=== PATIENT | female | born 1955 | race Caucasian/White ===

== ENCOUNTER 2019-01-09 12:48 | Inpatient (IN) ==
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
[2019-01-09 13:13] LABS: Hematocrit 43.9 % (35.3-44.9); Hemoglobin 15.3 g/dL (11.5-15.4); Mean Corpuscular HGB Conc 34.9 g/dL (31.6-35.5); Mean Corpuscular Hemoglobin 32.3 pg (28.0-33.3); Mean Corpuscular Volume 92.6 fL (83.0-100.0); Mean Platelet Volume 8.7 fL (9.4-12.4); Platelet Count 336 K/mcL (140-400); Red Blood Count 4.74 M/mcL (3.82-4.97); Red Cell Distribution Width 12.5 % (11.5-14.5); White Blood Count 7.6 K/mcL (4.3-11.1)
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
[2019-01-09] MEDS ORDERED: *HR* Labetalol 20 MG/4 ML SYRINGE IVP ONE (13:22)
[2019-01-09 13:24] LABS: Prothrombin Time 11.3 Seconds (9.4-12.1)
[2019-01-09 13:27] LABS: Activated Partial Thrombo Time 32.4 Seconds (26.0-36.0)
[2019-01-09 13:29] LABS: BUN/Creatinine Ratio 18 (6-26); Blood Urea Nitrogen 12 mg/dL (8-23); Calcium 9.4 mg/dL (8.6-10.3); Carbon Dioxide 25 mEq/L (23-29); Chloride 108 mEq/L (98-107); Glucose 128 mg/dL (70-105); Osmolality,Calculated 291 (280-300); Sodium 140 mEq/L (136-145); eGFR For African Americans > 60 (> 60); eGFR For Non-African Americans > 60 (> 60)
[2019-01-09 13:38] LABS: Troponin I < 0.03 ng/mL (< 0.04)
[2019-01-09] MEDS ORDERED: Aspirin 325 MG TABLET PO ONE (14:13)
[2019-01-09] MEDS ORDERED: Nicotine 14 MG PATCH.TD24 TD STA (14:16)
[2019-01-09] MEDS ORDERED: *HR* HYDROcodone/Acet 10/325 mg TABLET PO STA (14:39)
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
[2019-01-09] MEDS: Gabapentin 300 MG CAPSULE PO SCH ×2 (17:34→19:52)
[2019-01-09] MEDS ORDERED: Naloxone 0.4 MG/ML INJ IVP PRN (17:46)
[2019-01-09] MEDS ORDERED: Acetaminophen 325 MG TABLET PO PRN (17:46)
[2019-01-09 18:11] LABS: Estimated Average Glucose 128 mg/dl
[2019-01-09 18:19] LABS: Chol/HDL Ratio 4.7 (0-4.9)
[2019-01-09] MEDS: *HR* Heparin 5,000 UNIT/ML VIAL SQ SCH (18:26)
[2019-01-09] MEDS: *HR* OxyCODONE Immed Rel 5 MG TABLET PO PRN (19:51)
[2019-01-09 20:38] LABS: Amphetamine Screen,Urine Negative ng/mL (Cutoff=1000); Barbiturate Screen,Urine Negative ng/mL (Cutoff=200); Benzodiazepines Screen,Urine Negative ng/mL (Cutoff=200); Cannabinoid Screen,Urine Negative ng/mL (Cutoff = 50); Cocaine Screen,Urine Negative ng/mL (Cutoff= 300); Opiate Screen,Urine Positive ng/mL (Cutoff=300); Phencyclidine Screen,Urine Negative ng/mL (Cutoff=25)
[2019-01-10 04:35] LABS: Basophils % 0.6 %; Eosinophils # 0.1 K/mcL (0.0-0.6); Eosinophils % 1.9 %; Hematocrit 40.5 % (35.3-44.9); Immature Granulocytes % 0.3 % (0-4); Lymphocytes # 2.3 K/mcL (0.6-4.6); Lymphocytes % 32.6 %; Mean Corpuscular HGB Conc 33.8 g/dL (31.6-35.5); Mean Corpuscular Hemoglobin 32.2 pg (28.0-33.3); Mean Corpuscular Volume 95.1 fL (83.0-100.0); Mean Platelet Volume 8.8 fL (9.4-12.4); Monocytes # 0.5 K/mcL (0.0-1.3); Monocytes % 6.9 %; Platelet Count 289 K/mcL (140-400); Red Blood Count 4.26 M/mcL (3.82-4.97); Red Cell Distribution Width 12.6 % (11.5-14.5); Segmented Neutrophils % 57.7 %
[2019-01-10 04:37] LABS: Hemoglobin 13.7 g/dL (11.5-15.4)
[2019-01-10 04:40] LABS: Prothrombin Time 11.4 Seconds (9.4-12.1)
[2019-01-10 04:56] LABS: Alanine Aminotransferase 10 Units/L (7-52); Albumin 4.1 g/dL (3.5-5.7); Albumin/Globulin Ratio 1.9 (1.1-2.2); Alkaline Phosphatase 58 Units/L (34-104); Aspartate Amino Transferase 9 Units/L (13-39); BUN/Creatinine Ratio 22 (6-26); Bilirubin,Direct 0.1 mg/dL (0.0-0.2); Bilirubin,Indirect 0.4 mg/dL (0.0-1.2); Bilirubin,Total 0.5 mg/dL (0.3-1.0); Blood Urea Nitrogen 15 mg/dL (8-23); Carbon Dioxide 26 mEq/L (23-29); Chloride 106 mEq/L (98-107); Globulin 2.2 g/dL (2.4-3.5); Glucose 107 mg/dL (70-105); Magnesium 2.3 mg/dL (1.6-2.6); Osmolality,Calculated 295 (280-300); Potassium 3.7 mEq/L (3.5-5.1); Sodium 142 mEq/L (136-145); Total Protein 6.3 g/dL (6.4-8.9); eGFR For African Americans > 60 (> 60); eGFR For Non-African Americans > 60 (> 60)
[2019-01-10] MEDS: *HR* Heparin 5,000 UNIT/ML VIAL SQ SCH ×2 (05:40→18:39)
[2019-01-10] MEDS: Nicotine 14 MG PATCH.TD24 TD SCH (08:12)
[2019-01-10] MEDS: Gabapentin 300 MG CAPSULE PO SCH ×3 (08:45→20:12)
[2019-01-10] MEDS: Aspirin Enteric Coated 81 MG Tablet PO SCH (08:45)
[2019-01-10] MEDS: *HR* OxyCODONE Immed Rel 5 MG TABLET PO PRN (08:51)
[2019-01-10] MEDS ORDERED: Isovue-370 500 ML BOTTLE IVP ONE ×2 (09:27→10:16)
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
[2019-01-10] MEDS: *HR* LORazepam 0.5 MG TABLET PO PRN (11:14)
--- NOTE | 2019-01-10 12:03 | Event Note ---
Date of Encounter: 01/10/19 Time of Encounter: 12:03 As there was a concern off petechial hemorrhage on MRI scan and also also thrombus patient had CT angiogram of the head according to the report 1. Evolving acute/subacute left MCA territory infarction involving the posterior left temporal lobe and left frontoparietal junction. No hemorrhagic transformation. 2. 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 ( chronic ) 3. Moderate eccentric atherosclerotic plaque in the proximal left common carotid artery results in about 40% stenosis. 4. Noncalcified atherosclerotic plaque in the V segment of the left vertebral artery results in about 50% stenosis. 5. No large vessel occlusion in the intracranial arterial circulation. 

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
[2019-01-10] MEDS: *HR* HYDROcodone/Acet 5/325 mg TABLET PO PRN (16:25)
--- NOTE | 2019-01-10 16:25 | Event Note ---
Date of Encounter: 01/10/19 Time of Encounter: 16:23 Neurology seeing patient for embolic CVA echo results as follows - EV/EV echo with saline Impressions: LVEF 60-65%. Normal LV chamber size, wall thickness and function. Mild left ventricular diastolic dysfunction. Normal right ventricular structure and function. No evidence of a PFO with agitated saline contrast. No evidence of pulmonary hypertension. No significant valvular dysfunction. Consider venous duplex of BLE and GERALDINE to evaluate source of embolic CVA
[2019-01-11] MEDS: *HR* HYDROcodone/Acet 5/325 mg TABLET PO PRN ×2 (04:32→11:55)
[2019-01-11] MEDS: *HR* Heparin 5,000 UNIT/ML VIAL SQ SCH ×2 (05:15→17:26)
[2019-01-11] MEDS: Gabapentin 300 MG CAPSULE PO SCH ×3 (08:14→21:35)
[2019-01-11] MEDS: Nicotine 14 MG PATCH.TD24 TD SCH (08:14)
[2019-01-11] MEDS: Aspirin Enteric Coated 81 MG Tablet PO SCH (08:14)
[2019-01-11] MEDS: Ondansetron 4 MG/2 ML VIAL IVP PRN (08:15)
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
--- NOTE | 2019-01-11 12:04 | Electrocardiograph Report ---
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
--- NOTE | 2019-01-11 13:32 | Neurology Progress Note ---
Date of Encounter: 01/14/19 Time of Encounter: 13:30 Assessment and Plan (1) CVA (cerebral vascular accident) Current Visit: Yes Status: Acute Patient is doing better today she is not as emotional as yesterday still have significant aphasia. MRI of the brain was consistent with acute infarct CT angiogram did not show any evidence of flow bleeding she did have intracranial stenosis currently she is on a statin with antiplatelet therapy suggest to continue on it anxiety is also improved considering concern off embolic event suggest GERALDINE to make sure she did not have any embolic source that is negative will continue only with antiplatelet therapy otherwise she may need anticoagulation Jose David Anthony MD. Neurology Qualifiers: CVA mechanism: unspecified Qualified Code(s): I63.9 - Cerebral infarction, unspecified Subjective Interval history: The patient is stable did not have any other new symptoms or any new problems continued to have problem with his speech but no significant Fortical motor weakness Objective - Constitutional Vitals: Temp Pulse Resp BP Pulse Ox 97.9 F 81 14 125/74 95 01/11/19 11:43 01/11/19 11:43 01/11/19 11:43 01/11/19 11:43 01/11/19 11:43 - Neurological Exam Motor Examination: Present: grossly full strength in all extremities Sensation intact: Present: intact Reflex and gait examination: intact Mental Status Examination: Present: awake, alert, oriented to person, oriented to place, oriented to time, expressive aphasia Cranial nerve examination: Present: PERRL, EOMI, visual guerra intact - Stroke Is the patient on any antithrombotics?: No Are there any contradictions to antithrombotics?: No Contraindication Antithromb by Day Two: Medical contraindication - VTE Deep Vein Thrombosis/Pulmonary Embolism Present on Admission: Yes Results - Laboratory Findings CBC and BMP: 01/13/19 04:14 01/13/19 04:14 Abnormal lab findings: Abnormal lab results MPV 8.8 fL (9.4-12.4) L 01/10/19 03:54 Chloride 108 mEq/L (98-107) H 01/09/19 13:03 Glucose 107 mg/dL (70-105) H 01/10/19 03:54 POC Glucose 108 mg/dL (70-99) H 01/11/19 04:04 Hemoglobin A1c 6.1 % (-5.6) H 01/09/19 16:14 AST 9 Units/L (13-39) L 01/10/19 03:54 Serum Total Protein 6.3 g/dL (6.4-8.9) L 01/10/19 03:54 Globulin 2.2 g/dL (2.4-3.5) L 01/10/19 03:54 Triglycerides 166 mg/dL (< 150) H 01/09/19 16:14 LDL Cholesterol, Calc 105 mg/dL (0-99) H 01/09/19 16:14 VLDL Cholesterol, Calc 33 mg/dL (< 31) H 01/09/19 16:14 HDL Cholesterol 37 mg/dL (40-59) L 01/09/19 16:14 Urine Opiates Screen Positive ng/mL ([id number]) H 01/09/19 19:55 Consult Discharge Plan - Plan Referrals: Malu Limon [Primary Care Provider] - 02/03/19 11:45 am
[2019-01-11] MEDS: *HR* OxyCODONE Immed Rel 5 MG TABLET PO PRN (17:26)
[2019-01-12] MEDS: *HR* Heparin 5,000 UNIT/ML VIAL SQ SCH ×2 (06:03→16:32)
[2019-01-12] MEDS: *HR* OxyCODONE Immed Rel 5 MG TABLET PO PRN ×2 (06:04→12:51)
[2019-01-12] MEDS: Nicotine 14 MG PATCH.TD24 TD SCH (08:33)
[2019-01-12] MEDS: Gabapentin 300 MG CAPSULE PO SCH ×3 (08:34→19:58)
[2019-01-12] MEDS: Aspirin Enteric Coated 81 MG Tablet PO SCH (08:34)
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
[2019-01-12] MEDS: Ondansetron 4 MG/2 ML VIAL IVP PRN (19:58)
[2019-01-12] MEDS: *HR* HYDROcodone/Acet 5/325 mg TABLET PO PRN (20:07)
[2019-01-12] MEDS: *HR* LORazepam 0.5 MG TABLET PO PRN (20:25)
[2019-01-13 04:54] LABS: Hematocrit 39.2 % (35.3-44.9); Hemoglobin 13.2 g/dL (11.5-15.4); Mean Corpuscular HGB Conc 33.7 g/dL (31.6-35.5); Mean Corpuscular Hemoglobin 32.4 pg (28.0-33.3); Mean Corpuscular Volume 96.3 fL (83.0-100.0); Mean Platelet Volume 9.1 fL (9.4-12.4); Platelet Count 251 K/mcL (140-400); Red Blood Count 4.07 M/mcL (3.82-4.97); Red Cell Distribution Width 12.5 % (11.5-14.5); White Blood Count 7.3 K/mcL (4.3-11.1)
[2019-01-13 05:14] LABS: BUN/Creatinine Ratio 32 (6-26); Blood Urea Nitrogen 21 mg/dL (8-23); Calcium 8.5 mg/dL (8.6-10.3); Carbon Dioxide 24 mEq/L (23-29); Chloride 106 mEq/L (98-107); Glucose 123 mg/dL (70-105); Osmolality,Calculated 290 (280-300); Sodium 138 mEq/L (136-145); eGFR For African Americans > 60 (> 60); eGFR For Non-African Americans > 60 (> 60)
[2019-01-13] MEDS: *HR* Heparin 5,000 UNIT/ML VIAL SQ SCH ×2 (06:12→17:46)
[2019-01-13] MEDS: Gabapentin 300 MG CAPSULE PO SCH ×3 (08:00→19:56)
[2019-01-13] MEDS ORDERED: Lidocaine Viscous Oral Soln 15 ML SOLUTION MM PRN (08:22)
[2019-01-13] MEDS ORDERED: 0.9 % Sodium Chloride 500 ML IVC ONE (08:23)
[2019-01-13] MEDS ORDERED: *HR* Midazolam HCl 2 MG/2 ML VIAL IVP PRN (08:23)
[2019-01-13] MEDS ORDERED: *HR* Midazolam HCl 5 MG/5 ML VIAL IVP ONE (08:34)
[2019-01-13] MEDS: *HR* Midazolam HCl 5 MG/5 ML VIAL IVP ONE ×2 (08:45→08:56)
[2019-01-13] MEDS: *HR* FentaNYL (PF) 100 MCG/2 ML VIAL IVP PRN ×3 (08:45→08:55)
[2019-01-13] MEDS: Aspirin Enteric Coated 81 MG Tablet PO SCH (09:00)
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
--- NOTE | 2019-01-13 10:29 | Neurology Progress Note ---
<Osmar Churchill - Last Filed: 01/13/19 10:24> Date of Encounter: 01/13/19 Time of Encounter: 10:24 Assessment and Plan (1) CVA (cerebral vascular accident) Current Visit: Yes Status: Acute clinically is improving continues with expressive aphasia but is improving; no new neuro deficits -Rec speech therapy -PT/OT recommending inpatient swing bed for rehabilitation -MRI brain-small acute stroke in the left posterior temporal parietal region -Ojzlblyudzedlt-98-12% no PFO, no valvular dysfunction -CT angiogram-developed an acute/subacute left MCA territory infarction involving the posterior left temporal lobe and left frontoparietal junction without hemorrhagic transformation. 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 Moderate eccentric atherosclerotic plaque in the proximal left common carotid artery with 40% stenosis. Noncalcified atherosclerotic plaque in the V2 segment of liver to artery results and 50% stenosis. No large vessel occlusion in the intracranial arterial circulation Will undergo GERALDINE for evaluation of possible thrombus; if negative we recommend ing maintaining current medication regimen with statin and antiplatelet therapy Further recommendations pending w/u Qualifiers: CVA mechanism: unspecified Qualified Code(s): I63.9 - Cerebral infarction, unspecified Subjective Principal diagnosis: Acute CVA Interval history: The chart was reviewed, the patient was seen and examined at the bedside today. She continues to have expressive aphasia but is improving overall. No new deficits on neurological exam today. She is to undergo a GERALDINE this afternoon for evaluation of possible thrombus. Objective - Constitutional Vitals: Temp Pulse Resp BP Pulse Ox 97.6 F 68 18 119/78 93 01/13/19 08:24 01/13/19 08:24 01/13/19 08:24 01/13/19 08:24 01/13/19 08:24 Exam: Examination: General Examination: *CONSTITUTIONAL: Alert and oriented x3, calm and cooperative *GENERAL APPEARANCE OF PATIENT appears to be generally healthy and well groomed *EYES: pupils equal, round, reactive to light and accommodation, conjunctiva clear without masses or ulcerations, fundi normal. *CARDIOVASCULAR: no peripheral edema, distal temperature normal, dorsalis pedis pulses normal. 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 No abnormal movements, fasciculations or atrophy identified. Neurological: *ORIENTATION to person, situation, time and place *LANGUAGE AND FUNCTION no significant aphasia. No dysarthria, expressive aphasia continues but improving *ATTENTION AND CONCENTRATION are normal *LANGUAGE FUNCTION no significant aphasia or dysarthia was noted. *FUND OF KNOWLEDGE aware of current events, past history, vocabulary *MENTAL attention span and concentration normal. *CN II optic fundi were normal, no papilledema noted. *CN III,IV, PERRLA extraocular eye movements were full, no nystagmus and no ptosis noted. *CN V shows normal sensation and jaw opens symmetrically. *CN VII shows normal facial movement symmetrically, upper and lower bilaterally. *CN VIII shows no significant hearing loss on exam *CN IX-X palate elevated symmetrically *CN XI normal strength in the sternocleidomastoid muscles, symmetrical shoulder shrugging. *CN XII tongue protruded in the midline, with normal strength and movement. *SENSORY EXAMINATION light touch intact *REFLEXES: deep tendon reflexes were normal and symmetrical , grade 2/4 diffusely, no pathological reflexes were noted. *CEREBELLAR TESTING normal finger to nose *PAIN LEVEL 0/10 Results - Stroke Contraindication Antithromb by Day Two: Medical contraindication - VTE Deep Vein Thrombosis/Pulmonary Embolism Present on Admission: Yes Results - Laboratory Findings CBC and BMP: 01/13/19 04:14 01/13/19 04:14 Abnormal lab findings: Abnormal lab results MPV 9.1 fL (9.4-12.4) L 01/13/19 04:14 Chloride 108 mEq/L (98-107) H 01/09/19 13:03 BUN/Creatinine Ratio 32 (6-26) H 01/13/19 04:14 Glucose 123 mg/dL (70-105) H 01/13/19 04:14 POC Glucose 147 mg/dL (70-99) H 01/11/19 22:59 Hemoglobin A1c 6.1 % (-5.6) H 01/09/19 16:14 Calcium 8.5 mg/dL (8.6-10.3) L 01/13/19 04:14 AST 9 Units/L (13-39) L 01/10/19 03:54 Serum Total Protein 6.3 g/dL (6.4-8.9) L 01/10/19 03:54 Globulin 2.2 g/dL (2.4-3.5) L 01/10/19 03:54 Triglycerides 166 mg/dL (< 150) H 01/09/19 16:14 LDL Cholesterol, Calc 105 mg/dL (0-99) H 01/09/19 16:14 VLDL Cholesterol, Calc 33 mg/dL (< 31) H 01/09/19 16:14 HDL Cholesterol 37 mg/dL (40-59) L 01/09/19 16:14 Urine Opiates Screen Positive ng/mL ([id number]=443) H 01/09/19 19:55 Consult Discharge Plan - Plan Referrals: Malu Limon [Primary Care Provider] - <Jose David Anthony I - Last Filed: 01/13/19 14:19> Date of Encounter: 01/13/19 Assessment and Plan (1) CVA (cerebral vascular accident) Current Visit: Yes Status: Acute I have personally performed a face to face diagnostic evaluation, including HPI, EXAM, which is included in the Assesment and plan, which was discussed with Osmar Churchill CNP, I agree with the above outlined documentation. Jose David Anthony MD. NeurologyI Qualifiers: CVA mechanism: unspecified Qualified Code(s): I63.9 - Cerebral infarction, unspecified Objective - Constitutional Vitals: Temp Pulse Resp BP Pulse Ox 97.5 F L 65 16 108/75 95 01/13/19 10:59 01/13/19 10:59 01/13/19 10:59 01/13/19 10:59 01/13/19 10:59 - Stroke Is the patient on any antithrombotics?: No Are there any contradictions to antithrombotics?: No Results - Laboratory Findings CBC and BMP: 01/13/19 04:14 01/13/19 04:14 Abnormal lab findings: Abnormal lab results MPV 9.1 fL (9.4-12.4) L 01/13/19 04:14 Chloride 108 mEq/L (98-107) H 01/09/19 13:03 BUN/Creatinine Ratio 32 (6-26) H 01/13/19 04:14 Glucose 123 mg/dL (70-105) H 01/13/19 04:14 POC Glucose 147 mg/dL (70-99) H 01/11/19 22:59 Hemoglobin A1c 6.1 % (-5.6) H 01/09/19 16:14 Calcium 8.5 mg/dL (8.6-10.3) L 01/13/19 04:14 AST 9 Units/L (13-39) L 01/10/19 03:54 Serum Total Protein 6.3 g/dL (6.4-8.9) L 01/10/19 03:54 Globulin 2.2 g/dL (2.4-3.5) L 01/10/19 03:54 Triglycerides 166 mg/dL (< 150) H 01/09/19 16:14 LDL Cholesterol, Calc 105 mg/dL (0-99) H 01/09/19 16:14 VLDL Cholesterol, Calc 33 mg/dL (< 31) H 01/09/19 16:14 HDL Cholesterol 37 mg/dL (40-59) L 01/09/19 16:14 Urine Opiates Screen Positive ng/mL (Lgxjlq=970) H 01/09/19 19:55
--- NOTE | 2019-01-13 11:22 | Event Note ---
Date of Encounter: 01/13/19 Time of Encounter: 11:19 GERALDINE completed, no PFO, or intracardiac thrombus continue with antiplatelet therapy and statin c/w PT/OT and speech Neurology will sign off at this time; Please call should any urgent needs arise Okay to d/c from neurology perspective
[2019-01-13] MEDS: *HR* OxyCODONE Immed Rel 5 MG TABLET PO PRN (14:03)
[2019-01-13] MEDS: Ondansetron 4 MG/2 ML VIAL IVP PRN (18:24)
[2019-01-13] MEDS: *HR* HYDROcodone/Acet 5/325 mg TABLET PO PRN (20:02)
[2019-01-13] MEDS: Nicotine 14 MG PATCH.TD24 TD SCH (21:08)
[2019-01-14] MEDS: Nicotine 14 MG PATCH.TD24 TD SCH ×2 (00:16→21:29)
[2019-01-14] MEDS: *HR* Heparin 5,000 UNIT/ML VIAL SQ SCH ×2 (05:11→17:25)
[2019-01-14] MEDS: *HR* HYDROcodone/Acet 5/325 mg TABLET PO PRN ×3 (05:12→19:23)
[2019-01-14] MEDS: Gabapentin 300 MG CAPSULE PO SCH ×3 (08:23→21:34)
[2019-01-14] MEDS: Aspirin Enteric Coated 81 MG Tablet PO SCH (08:23)
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
[2019-01-15] MEDS: *HR* HYDROcodone/Acet 5/325 mg TABLET PO PRN ×2 (03:16→15:23)
[2019-01-15 05:11] LABS: Basophils # 0.1 K/mcL (0.0-0.2); Basophils % 0.9 %; Eosinophils # 0.1 K/mcL (0.0-0.6); Eosinophils % 2.2 %; Hematocrit 40.4 % (35.3-44.9); Hemoglobin 13.3 g/dL (11.5-15.4); Immature Granulocytes % 0.2 % (0-4); Lymphocytes # 1.6 K/mcL (0.6-4.6); Lymphocytes % 24.6 %; Mean Corpuscular HGB Conc 32.9 g/dL (31.6-35.5); Mean Corpuscular Hemoglobin 32.3 pg (28.0-33.3); Mean Corpuscular Volume 98.1 fL (83.0-100.0); Mean Platelet Volume 9.1 fL (9.4-12.4); Monocytes # 0.6 K/mcL (0.0-1.3); Neutrophils # 4.1 K/mcL (1.6-8.9); Platelet Count 251 K/mcL (140-400); Red Blood Count 4.12 M/mcL (3.82-4.97); Segmented Neutrophils % 63.1 %; White Blood Count 6.5 K/mcL (4.3-11.1)
[2019-01-15 05:31] LABS: BUN/Creatinine Ratio 21 (6-26); Blood Urea Nitrogen 13 mg/dL (8-23); Calcium 8.8 mg/dL (8.6-10.3); Carbon Dioxide 24 mEq/L (23-29); Chloride 104 mEq/L (98-107); Glucose 116 mg/dL (70-105); Osmolality,Calculated 287 (280-300); Sodium 138 mEq/L (136-145); eGFR For African Americans > 60 (> 60); eGFR For Non-African Americans > 60 (> 60)
[2019-01-15] MEDS: *HR* Heparin 5,000 UNIT/ML VIAL SQ SCH ×2 (05:52→17:49)
[2019-01-15] MEDS: Gabapentin 300 MG CAPSULE PO SCH ×3 (08:42→21:50)
[2019-01-15] MEDS: Acetaminophen/Butalbital/CaffeineTABLET PO PRN ×2 (08:42→21:55)
[2019-01-15] MEDS: Aspirin Enteric Coated 81 MG Tablet PO SCH (08:42)
--- NOTE | 2019-01-15 13:19 | Internal Med Progress Note ---
Hospitalist Progress Note - Encounter Date of Encounter: 01/15/19 Time of Encounter: 12:36 - Subjective Interval History: Patient was seen and examined at [facility] She cont to word search- attempts to speak in sentences - however unable to find words- she becomes frustrated and begins to cry- discussed rehab which patient verbalized understanding - Exam Vitals: Temp Pulse Resp BP Pulse Ox 97.8 F 225 17 113/79 80 01/15/19 06:44 01/15/19 06:44 01/15/19 06:44 01/15/19 06:44 01/15/19 06:44 Exam: Gen: Alert, awake, Oriented to time,place and person Chest: Diminished breath sounds B/L, No wheezing, No crackles, No rales Heart: S1S2+ RRR No murmurs Abd: Soft, NT, BS +, No organomegaly Ext: No edema, pulses are palpable, No calf tenderness Neuro : Dysarthria +, Motor weakness in Rt UE and LE. Reflexes diminished Skin: No rash. - Assessment and Plan (1) Aphasia Current Visit: Yes Status: Acute Assessment and Plan: as above. Speech improving attempting to speak in sentences- word finding (2) HTN (hypertension) Current Visit: No Status: Chronic Assessment and Plan: Stable BP cont current medications (3) COPD (chronic obstructive pulmonary disease) Current Visit: No Status: Chronic Assessment and Plan: not in exacerbation. resumed home inhalers. (4) Tobacco abuse Current Visit: No Status: Chronic Assessment and Plan: Counseled to quit smoking placed on nicotine patch (5) Embolic stroke Current Visit: Yes Status: Acute Assessment and Plan: 01/10 Brain MRI showed small acute stroke in the left posterior temporal and parietal region. Multiple scattered punctate foci of acute stroke in the left frontal and parietal lobes. CTA of Head / Neck showed - Evolving acute/subacute left MCA territory infarction involving the posterior left temporal lobe and left fronto parietal junction. 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 Not a cnadidtae for tPA due to out of time frame Neuro is on board. Appreciate recommendations Since pt is ASA naive, started on ASA 81mg Will talk to Neuro about DAPT therapy since pt has embolic CVA her EKG showed NSR, no arrhythmias noticed Echo - P on LIpitor 80mg - LDL @ 105 PT / OT eval.. may get benefit of inpatient physical therapy speech therapy ordered. 01/11 GERALDINE ordered per neurology recommendation. PT/OT recommended inpatient rehabilitation. Continue aspirin. Neurology following, appreciate help. 01/12-01/13 pending GERALDINE, on asa currently. Neuro and cardiology following, appreciate help. 01/14 GERALDINE no intra-ventricular thrombus. Neuro recommended continue asa. Awaiting for placement. 01/15 Speech appears to be improving- cont to have some weakness to R side Neuro recommends cont ASA statin Awaiting acceptance at rehab - Time Spent with Patient Total time spent is greater than 50% in coordination of care (as documented) at patient's floor/unit and/or counseling patient: Internal Medicine: Result - Labs CBC & Chem 7: 01/15/19 04:24 01/15/19 04:24 Labs: Short CBC 01/15/19 Range/Units 04:24 WBC 6.5 (4.3-11.1) K/mcL Hgb 13.3 (11.5-15.4) g/dL Hct 40.4 (35.3-44.9) % Plt Count 251 (140-400) K/mcL Neutrophils # 4.1 (1.6-8.9) K/mcL BMP 01/15/19 04:24 Sodium 138 Potassium 4.0 Chloride 104 Carbon Dioxide 24 BUN 13 Creatinine 0.61 Glucose 116 H Calcium 8.8 - ABG Interpretation ABG results: PT/INR, D-dimer PT 11.4 Seconds (9.4-12.1) 01/10/19 03:54 - Stroke Is the patient on any antithrombotics?: Yes Are there any contradictions to antithrombotics?: No Contraindication Not Initiating IV-Tpa: Medical contraindication Has Patient Been Evaluated by Rehab for Stroke: Yes - VTE Deep Vein Thrombosis/Pulmonary Embolism Present on Admission: Yes Consult Discharge Plan - Plan Referrals: Malu Limon [Primary Care Provider] - 02/03/19 11:45 am (2) HTN (hypertension) Qualifiers: Hypertension type: essential hypertension Qualified Code(s): I10 - Essential (primary) hypertension (3) COPD (chronic obstructive pulmonary disease) Qualifiers: COPD type: unspecified COPD Qualified Code(s): J44.9 - Chronic obstructive pulmonary disease, unspecified (5) Embolic stroke Qualifiers: Precerebral and cerebral artery: middle cerebral artery Laterality of affected vessel: left Qualified Code(s): I63.412 - Cerebral infarction due to embolism of left middle cerebral artery
[2019-01-15] MEDS: *HR* LORazepam 0.5 MG TABLET PO PRN (21:50)
[2019-01-15] MEDS: Nicotine 14 MG PATCH.TD24 TD SCH (21:51)
[2019-01-16] MEDS: *HR* HYDROcodone/Acet 5/325 mg TABLET PO PRN ×3 (00:52→16:15)
--- NOTE | 2019-01-16 03:59 | Event Note ---
Date of Encounter: 01/16/19 Time of Encounter: 03:24 Alerted by pts. nurse NAVIN Randolph that the patient had been admitted for stroke- like symptoms. Patient's is now concerned about her, stating that she seems different than previously today. Nurse requested I come see patient immediately which I did. Patient was resting in bed. Minor jerking movements on examination. Patient's denies history of seizures. Patient is aphasic. Patient could not complete neurological exam as she was unable to follow directions. Notably weaker right side when attempting to squeeze my fingers. MRI on 12/20 to showed small acute stroke in the left posterior temporal and parietal region. Additionally, multiple scattered punctate foci of acute stroke in the left frontal and parietal lobes. Small focus of gradient blooming in the region of acute stroke in the left posterior temporal region which could represent trace petechial hemorrhage versus thrombus within a vessel. Mild been asymmetric FLAIR hyperintense signal in left posterior temporal, occipital, and parietal convexities is nonspecific and could relate to changes of acute ischemia in the adjacent brain parenchyma. Trace subdural blood is considered less likely but not entirely excluded. Continued attenuation on follow-up recommended. Stat CT of the head/brain without contrast ordered to rule out hemorrhagic etiology. Stat troponin ordered. Stat MRI ordered to be done first thing in the a.m. to rule out additional acute stroke(s). Stat CBC and CMP ordered. Falls precautions and up with assist ordered. Awaiting CT results. Nurse instructed to continue monitoring this patient very closely and alert me immediately of any adverse changes. Based on i ing, this pt. may require a further Neurology consult.
[2019-01-16 04:07] LABS: Basophils % 0.5 %; Eosinophils # 0.2 K/mcL (0.0-0.6); Hematocrit 38.3 % (35.3-44.9); Hemoglobin 13.1 g/dL (11.5-15.4); Immature Granulocytes % 0.3 % (0-4); Lymphocytes # 2.3 K/mcL (0.6-4.6); Lymphocytes % 29.8 %; Mean Corpuscular HGB Conc 34.2 g/dL (31.6-35.5); Mean Corpuscular Hemoglobin 31.6 pg (28.0-33.3); Mean Corpuscular Volume 92.5 fL (83.0-100.0); Mean Platelet Volume 9.2 fL (9.4-12.4); Monocytes # 0.6 K/mcL (0.0-1.3); Monocytes % 7.7 %; Neutrophils # 4.5 K/mcL (1.6-8.9); Platelet Count 289 K/mcL (140-400); Red Blood Count 4.14 M/mcL (3.82-4.97); Red Cell Distribution Width 11.9 % (11.5-14.5); Segmented Neutrophils % 59.7 %; White Blood Count 7.6 K/mcL (4.3-11.1)
[2019-01-16 04:25] LABS: Alanine Aminotransferase 16 Units/L (7-52); Albumin 4.1 g/dL (3.5-5.7); Albumin/Globulin Ratio 1.6 (1.1-2.2); Alkaline Phosphatase 68 Units/L (34-104); Aspartate Amino Transferase 12 Units/L (13-39); BUN/Creatinine Ratio 16 (6-26); Bilirubin,Total 0.4 mg/dL (0.3-1.0); Blood Urea Nitrogen 9 mg/dL (8-23); Calcium 9.1 mg/dL (8.6-10.3); Carbon Dioxide 25 mEq/L (23-29); Chloride 106 mEq/L (98-107); Globulin 2.5 g/dL (2.4-3.5); Glucose 113 mg/dL (70-105); Osmolality,Calculated 289 (280-300); Sodium 140 mEq/L (136-145); Total Protein 6.6 g/dL (6.4-8.9); eGFR For African Americans > 60 (> 60); eGFR For Non-African Americans > 60 (> 60)
[2019-01-16] MEDS: *HR* Heparin 5,000 UNIT/ML VIAL SQ SCH (05:17)
--- NOTE | 2019-01-16 08:30 | Internal Med Progress Note ---
Hospitalist Progress Note - Encounter Date of Encounter: 01/16/19 Time of Encounter: 08:30 - Subjective Interval History: Received signout from night [employer]ER-daily overnight patient exhibited jerking movements as well as was a phasic unable to follow directions-ray side was flaccid-stat CT and MRI was not completed which did show Left MCA vascular t erritory infarct involving the left temporal and parietal lobes has increased in size since the prior examination. Small area of acute infarct in the anterior left frontal lobe appears progressed since the prior examination. Additional, punctate foci of acute infarct in the left frontal white matter have not significantly changed. Patient was assessed when I arrived this a.m. and was noted to have expressive aphasia as well as right-sided weakness. I did speak with the on-call neurologist Dr. Sim and updated him on recent changes. I also notified Melissa Churchill CNP who evaluated the patient at bedside we did review telemetry overnight there is some question concerning possible atrial flutter we will consult cardiology. Patient and family updated on treatment plan. - Exam Vitals: Temp Pulse Resp BP Pulse Ox 97.9 F 65 16 114/79 97 01/16/19 02:43 01/16/19 06:44 01/16/19 06:44 01/16/19 06:44 01/16/19 06:44 Exam: Gen: Alert, awake, Oriented to time,place and person Chest: Diminished breath sounds B/L, No wheezing, No crackles, No rales Heart: S1S2+ RRR No murmurs Abd: Soft, NT, BS +, No organomegaly Ext: No edema, pulses are palpable, No calf tenderness Neuro : Dysarthria +, Motor weakness in Rt UE and LE. Reflexes diminished Skin: No rash. - Assessment and Plan (1) Aphasia Current Visit: Yes Status: Acute Assessment and Plan: as above. Displays expressive aphasia repeat MRI head/brain does show IMPRESSION: Left MCA vascular territory infarct involving the left temporal and parietal lobes has increased in size since the prior examination. Small area of acute infarct in the anterior left frontal lobe appears progressed since the prior examination. Additional, punctate foci of acute infarct in the left frontal white matter have not significantly changed. (2) HTN (hypertension) Current Visit: No Status: Chronic Assessment and Plan: Patient has had some hypotension with systolic in the 90s. We will hold antihypertensives for now and allow for permissive hypertension maintaining systolic range 160-180 (3) COPD (chronic obstructive pulmonary disease) Current Visit: No Status: Chronic Assessment and Plan: not in exacerbation. Continue home inhalers. (4) Tobacco abuse Current Visit: No Status: Chronic Assessment and Plan: Counseled to quit smoking placed on nicotine patch (5) Embolic stroke Current Visit: Yes Status: Acute Assessment and Plan: 01/10 Brain MRI showed small acute stroke in the left posterior temporal and parietal region. Multiple scattered punctate foci of acute stroke in the left frontal and parietal lobes. CTA of Head / Neck showed - Evolving acute/subacute left MCA territory infarction involving the posterior left temporal lobe and left fronto parietal junction. 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 Not a cnadidtae for tPA due to out of time frame Neuro is on board. Appreciate recommendations Since pt is ASA naive, started on ASA 81mg Will talk to Neuro about DAPT therapy since pt has embolic CVA her EKG showed NSR, no arrhythmias noticed Echo - P on LIpitor 80mg - LDL @ 105 PT / OT eval.. may get benefit of inpatient physical therapy speech therapy ordered. 01/11 GERALDINE ordered per neurology recommendation. PT/OT recommended inpatient rehabilitation. Continue aspirin. Neurology following, appreciate help. 01/12-01/13 pending GERALDINE, on asa currently. Neuro and cardiology following, appreciate help. 01/14 GERALDINE no intra-ventricular thrombus. Neuro recommended continue asa. Awaiting for placement. 01/15 Speech appears to be improving- cont to have some weakness to R side Neuro recommends cont ASA statin Awaiting acceptance at rehab 01/16 Patient developed aphasia as well as right-sided weakness overnight repeat MRI head/brain IMPRESSION: Left MCA vascular territory infarct involving the left temporal and parietal lobes has increased in size since the prior examination. Small area of acute infarct in the anterior left frontal lobe appears progressed since the prior examination. Additional, punctate foci of acute infarct in the left frontal white matter have not significantly changed. Neurology was notified-review of telemetry overnight questionable atrial flutter Consult to cardiology cardiology requesting consult for vascular surgery- occlusion of cervical left internal carotid artery with reconstitution of flow within the left petrous segment Continue aspirin and statin - Time Spent with Patient Total time spent is greater than 50% in coordination of care (as documented) at patient's floor/unit and/or counseling patient: Internal Medicine: Result - Labs CBC & Chem 7: 01/16/19 03:47 01/16/19 03:47 Labs: Short CBC 01/16/19 Range/Units 03:47 WBC 7.6 (4.3-11.1) K/mcL Hgb 13.1 (11.5-15.4) g/dL Hct 38.3 (35.3-44.9) % Plt Count 289 (140-400) K/mcL Neutrophils # 4.5 (1.6-8.9) K/mcL BMP 01/16/19 03:47 Sodium 140 Potassium 4.0 Chloride 106 Carbon Dioxide 25 BUN 9 Creatinine 0.58 L Glucose 113 H Calcium 9.1 Cardiac Enzymes 01/16/19 Range/Units 03:47 Troponin I < 0.03 (< 0.04) ng/mL Liver Function 01/16/19 Range/Units 03:47 Total Bilirubin 0.4 (0.3-1.0) mg/dL AST 12 L (13-39) Units/L ALT 16 (7-52) Units/L Alkaline Phosphatase 68 (34-104) Units/L Albumin 4.1 (3.5-5.7) g/dL - ABG Interpretation ABG results: PT/INR, D-dimer PT 11.4 Seconds (9.4-12.1) 01/10/19 03:54 - Impressions Impressions Head CT 01/16/19 03:35 IMPRESSION: Maturing left MCA territory infarct with new areas of increased cortical attenuation which may represent petechial hemorrhage. Additional punctate foci of restricted diffusion in the left frontal and parietal lobes seen on comparison MRI from 01/09/[address] Otherwise, no new/acute infarct or other intracranial abnormality. Critical results were called by Dr. Anupam Mcdowell to Lenin Breen [facility] on 01/16/2019 at 04:38. D/ / Anupam Mcdowell / Anupam Mcdowell Interpreting Provider: Anupam Mcdowell Brain MRI 01/16/19 03:36 IMPRESSION: Left MCA vascular territory infarct involving the left temporal and parietal lobes has increased in size since the prior examination. Small area of acute infarct in the anterior left frontal lobe appears progressed since the prior examination. Additional, punctate foci of acute infarct in the left frontal white matter have not significantly changed. The findings were sent to the Radiology Results Communication Center at 7:29 am on 01/16/2019 to be communicated to a licensed caregiver. D/ / 01/16/2019 07:33:59 Albert Valentin MD / lgray Interpreting Provider: Albert Valentin MD - Stroke Is the patient on any antithrombotics?: Yes Contraindication Antithromb by Day Two: Medical contraindication Contraindication Not Initiating IV-Tpa: Medical contraindication Symptom Onset Unknown: No Has Patient Been Evaluated by Rehab for Stroke: Yes - VTE Deep Vein Thrombosis/Pulmonary Embolism Present on Admission: Yes Consult Discharge Plan - Plan Referrals: Malu Limon [Primary Care Provider] - 02/03/19 11:45 am _ (2) HTN (hypertension) Qualifiers: Hypertension type: essential hypertension Qualified Code(s): I10 - Essential (primary) hypertension (3) COPD (chronic obstructive pulmonary disease) Qualifiers: COPD type: unspecified COPD Qualified Code(s): J44.9 - Chronic obstructive pulmonary disease, unspecified (5) Embolic stroke Qualifiers: Precerebral and cerebral artery: middle cerebral artery Laterality of affected vessel: left Qualified Code(s): I63.412 - Cerebral infarction due to embolism of left middle cerebral artery
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
[2019-01-16] MEDS: Aspirin Enteric Coated 81 MG Tablet PO SCH (09:51)
[2019-01-16] MEDS: Gabapentin 300 MG CAPSULE PO SCH ×3 (09:52→19:54)
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
--- NOTE | 2019-01-16 14:48 | Electrocardiograph Report ---
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
[2019-01-16] MEDS: *HR* LORazepam 0.5 MG TABLET PO PRN (19:55)
[2019-01-16] MEDS: Nicotine 14 MG PATCH.TD24 TD SCH (19:55)
[2019-01-17] MEDS: Ondansetron 4 MG/2 ML VIAL IVP PRN (00:17)
[2019-01-17] MEDS: *HR* OxyCODONE Immed Rel 5 MG TABLET PO PRN (00:21)
[2019-01-17] MEDS: *HR* HYDROcodone/Acet 5/325 mg TABLET PO PRN ×2 (04:13→13:55)
[2019-01-17 05:15] LABS: Basophils % 0.5 %; Eosinophils # 0.2 K/mcL (0.0-0.6); Eosinophils % 2.2 %; Hematocrit 39.3 % (35.3-44.9); Hemoglobin 13.1 g/dL (11.5-15.4); Immature Granulocytes % 0.4 % (0-4); Lymphocytes # 2.4 K/mcL (0.6-4.6); Lymphocytes % 29.4 %; Mean Corpuscular HGB Conc 33.3 g/dL (31.6-35.5); Mean Corpuscular Hemoglobin 31.8 pg (28.0-33.3); Mean Corpuscular Volume 95.4 fL (83.0-100.0); Mean Platelet Volume 9.3 fL (9.4-12.4); Monocytes # 0.6 K/mcL (0.0-1.3); Neutrophils # 4.9 K/mcL (1.6-8.9); Platelet Count 316 K/mcL (140-400); Red Blood Count 4.12 M/mcL (3.82-4.97); Red Cell Distribution Width 11.9 % (11.5-14.5); Segmented Neutrophils % 60.5 %; White Blood Count 8.1 K/mcL (4.3-11.1)
[2019-01-17 05:27] LABS: BUN/Creatinine Ratio 23 (6-26); Blood Urea Nitrogen 12 mg/dL (8-23); Calcium 8.8 mg/dL (8.6-10.3); Carbon Dioxide 24 mEq/L (23-29); Chloride 104 mEq/L (98-107); Glucose 129 mg/dL (70-105); Osmolality,Calculated 289 (280-300); Potassium 4.2 mEq/L (3.5-5.1); Sodium 139 mEq/L (136-145); eGFR For African Americans > 60 (> 60); eGFR For Non-African Americans > 60 (> 60)
[2019-01-17] MEDS: Aspirin Enteric Coated 81 MG Tablet PO SCH (07:59)
[2019-01-17] MEDS: Gabapentin 300 MG CAPSULE PO SCH (07:59)
--- NOTE | 2019-01-17 09:04 | Neurology Progress Note ---
<Osmar Churchill J - Last Filed: 01/17/19 12:48> Date of Encounter: 01/17/19 Time of Encounter: 09:04 Assessment and Plan (1) CVA (cerebral vascular accident) Current Visit: Yes Status: Acute Clinically, the patient remained stable overnight. She is somewhat drowsy this morning but responds to gentle verbal stimulus. There are no new neurological deficits on exam, specifically there are no new focal motor or sensory findings. She continues to have aphasia and mild right upper extremity weakness. At this time we are not recommending any additional neuroimaging or interventions. Regards to the left internal carotid artery occlusion she has been seen by the vascular surgeon who has noted the occlusion is not interventional. At this juncture I recommending continuing with aspirin and Lipitor. I discussed aggressive risk factor modification medication compliance, and smoking cessation. He has not brought it to my attention this morning the patient is prescribed large amounts of opiates for her PCP and other providers. I strongly encouraged safe opiate discontinuation and that discontinuation would be beneficial and should be managed by her PCP. Further I, discussed hypoperfusion and how it relates to her current condition and how and which medications can affect blood pressure causing hypoperfusion. Both she and her verbalize understanding. We are recommending permissive HTN for 7-10 days with goal SBP less than 180; she is okay to have SBP in the 150-170's at this will promote perfusion. She is okay to d/c to rehab for PT/OT and speech therapy. Neurology will sign off at this time. Please call should any urgent needs arise. Qualifiers: CVA mechanism: unspecified Qualified Code(s): I63.9 - Cerebral infarction, unspecified Subjective Principal diagnosis: Acute CVA Interval history: The chart was reviewed, the patient was seen and examined at the bedside today. She continues to have expressive aphasia but is improving overall. She is somewhat drowsy today but arouses to gentle verbal stimulus and will maintain attention and concentration and follow commands as appropriate. The drowsiness may be due to the extension of CVA found on MRI imaging yesterday. However, she is also on opiates and this is also contributing. Objective - Constitutional Vitals: Temp Pulse Resp BP Pulse Ox 97.8 F 66 18 105/75 96 01/17/19 06:45 01/17/19 06:45 01/17/19 06:45 01/17/19 06:45 01/17/19 06:45 Exam: Examination: General Examination: *CONSTITUTIONAL: Alert and oriented x3, no acute distress *GENERAL APPEARANCE OF PATIENT appears older than stated age but generally healthy *EYES: pupils equal, round, reactive to light and accommodation, conjunctiva clear without masses or ulcerations, fundi normal. *CARDIOVASCULAR: distal temperature normal, dorsalis pedis pulses normal. 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 No abnormal movements, fasciculations or atrophy identified. Neurological: *ORIENTATION to person, and place, and somewhat to current events *LANGUAGE AND FUNCTION no dysarthria noted but does have a component of both expressive and receptive aphasia which is improving *ATTENTION AND CONCENTRATION are normal *LANGUAGE FUNCTION positive for a component of both receptive and expressive aphasia which is improving. No dysarthria noted *FUND OF KNOWLEDGE aware of current events, past history, vocabulary *MENTAL attention span and concentration normal. *CN II optic fundi were normal, no papilledema noted. *CN III,IV, PERRLA extraocular eye movements were full, no nystagmus and no ptosis noted. *CN V shows normal sensation and jaw opens symmetrically. *CN VII shows normal facial movement symmetrically, upper and lower bilaterally. *CN VIII shows no significant hearing loss on exam *CN IX-X palate elevated symmetrically *CN XI normal strength in the sternocleidomastoid muscles, symmetrical shoulder shrugging. *CN XII tongue protruded in the midline, with normal strength and movement. *SENSORY EXAMINATION light touch intact *REFLEXES: deep tendon reflexes were normal and symmetrical , grade 1/4 diffusely, no pathological reflexes were noted. *CEREBELLAR TESTING dysmetria with right finger to nose - Neurological Exam Motor Examination: Present: grossly full strength in all extremities Sensation intact: Present: intact Reflex and gait examination: intact Mental Status Examination: Present: awake, alert, oriented to person, oriented to place, oriented to time, expressive aphasia Cranial nerve examination: Present: PERRL, EOMI, visual guerra intact - Stroke Contraindication Antithromb by Day Two: Medical contraindication Contraindication Not Initiating IV-Tpa: Medical contraindication - VTE Deep Vein Thrombosis/Pulmonary Embolism Present on Admission: Yes Results - Laboratory Findings CBC and BMP: 01/17/19 04:04 01/17/19 04:04 Abnormal lab findings: Abnormal lab results MPV 9.3 fL (9.4-12.4) L 01/17/19 04:04 Chloride 108 mEq/L (98-107) H 01/09/19 13:03 Creatinine 0.53 mg/dL (0.60-1.20) L 01/17/19 04:04 BUN/Creatinine Ratio 32 (6-26) H 01/13/19 04:14 Glucose 129 mg/dL (70-105) H 01/17/19 04:04 POC Glucose 107 mg/dL (70-99) H 01/14/19 19:08 Hemoglobin A1c 6.1 % (-5.6) H 01/09/19 16:14 Calcium 8.5 mg/dL (8.6-10.3) L 01/13/19 04:14 AST 12 Units/L (13-39) L 01/16/19 03:47 Serum Total Protein 6.3 g/dL (6.4-8.9) L 01/10/19 03:54 Globulin 2.2 g/dL (2.4-3.5) L 01/10/19 03:54 Triglycerides 166 mg/dL (< 150) H 01/09/19 16:14 LDL Cholesterol, Calc 105 mg/dL (0-99) H 01/09/19 16:14 VLDL Cholesterol, Calc 33 mg/dL (< 31) H 01/09/19 16:14 HDL Cholesterol 37 mg/dL (40-59) L 01/09/19 16:14 Urine Opiates Screen Positive ng/mL (Mhyhvq=010) H 01/09/19 19:55 Consult Discharge Plan - Plan Referrals: [facility] [Primary Care Provider] - 02/03/19 11:45 am <Aliyah Sim - Last Filed: 01/17/19 13:16> Date of Encounter: 01/17/19 Assessment and Plan (1) CVA (cerebral vascular accident) Current Visit: Yes Status: Acute Qualifiers: CVA mechanism: unspecified Qualified Code(s): I63.9 - Cerebral infarction, unspecified Objective - Constitutional Vitals: Temp Pulse Resp BP Pulse Ox 97.8 F 66 18 105/75 96 01/17/19 06:45 01/17/19 06:45 01/17/19 06:45 01/17/19 06:45 01/17/19 06:45 - Stroke Is the patient on any antithrombotics?: No Are there any contradictions to antithrombotics?: No Results - Laboratory Findings CBC and BMP: 01/17/19 04:04 01/17/19 04:04 Abnormal lab findings: Abnormal lab results MPV 9.3 fL (9.4-12.4) L 01/17/19 04:04 Chloride 108 mEq/L (98-107) H 01/09/19 13:03 Creatinine 0.53 mg/dL (0.60-1.20) L 01/17/19 04:04 BUN/Creatinine Ratio 32 (6-26) H 01/13/19 04:14 Glucose 129 mg/dL (70-105) H 01/17/19 04:04 POC Glucose 107 mg/dL (70-99) H 01/14/19 19:08 Hemoglobin A1c 6.1 % (-5.6) H 01/09/19 16:14 Calcium 8.5 mg/dL (8.6-10.3) L 01/13/19 04:14 AST 12 Units/L (13-39) L 01/16/19 03:47 Serum Total Protein 6.3 g/dL (6.4-8.9) L 01/10/19 03:54 Globulin 2.2 g/dL (2.4-3.5) L 01/10/19 03:54 Triglycerides 166 mg/dL (< 150) H 01/09/19 16:14 LDL Cholesterol, Calc 105 mg/dL (0-99) H 01/09/19 16:14 VLDL Cholesterol, Calc 33 mg/dL (< 31) H 01/09/19 16:14 HDL Cholesterol 37 mg/dL (40-59) L 01/09/19 16:14 Urine Opiates Screen Positive ng/mL (Josgbp=681) H 01/09/19 19:55
--- NOTE | 2019-01-17 10:17 | Event Note ---
Date of Encounter: 01/17/19 Time of Encounter: 09:00 - Cardiology Event Note Plan for LOOP recorder today. Risks versus benefits of LOOP recorder explained to patient and family, who state understanding and agreeable to proceed.
[2019-01-17] MEDS ORDERED: *HR* Midazolam HCl 2 MG/2 ML VIAL ONE (11:49)
[2019-01-17] MEDS ORDERED: *HR* FentaNYL (PF) 100 MCG/2 ML VIAL ONE (11:49)
[2019-01-17 14:01] VITALS: BP 108/75
--- NOTE | 2019-01-17 14:20 | Event Note ---
Date of Encounter: 01/17/19 Time of Encounter: 14:19 - Cardiology Event Note Patient is s/p LOOP recorder placement. Post device insertion management education reviewed with patient per lab head staff. Cardiology will sign off, will arrange post device insertion follow up with [facility].
--- NOTE | 2019-01-17 14:31 | Discharge Summary ---
- NOTES TO OUTPATIENT PROVIDER Notes to Outpatient Provider: Status post CVA-we will need to follow-up with neurology as well as cardiology. Loop recorder placed-suspect embolic in nature. Neurology recommending aspirin and statin only at this time. Recommending maintaining systolic blood pressure 150s to 170s for approximately 7-10 days. According to family patient has been taking Percocet more frequently than normal as well as gabapentin-noted drastic drop in blood pressure when taking narcotics. Encouraged patient to wean off narcotics decreased gabapentin will need continued monitoring Date of Encounter: 01/17/19 Time of Encounter: 14:27 - Discharge Diagnosis (1) Aphasia Priority: Primary Status: Acute (2) HTN (hypertension) Priority: Secondary Status: Chronic Qualifiers: Hypertension type: essential hypertension Qualified Code(s): I10 - Essential (primary) hypertension (3) COPD (chronic obstructive pulmonary disease) Priority: Secondary Status: Chronic Qualifiers: COPD type: unspecified COPD Qualified Code(s): J44.9 - Chronic obstructive pulmonary disease, unspecified (4) Tobacco abuse Priority: Secondary Status: Chronic (5) Embolic stroke Priority: Primary Status: Acute Qualifiers: Precerebral and cerebral artery: middle cerebral artery Laterality of affected vessel: left Qualified Code(s): I63.412 - Cerebral infarction due to embolism of left middle cerebral artery Hospital course: Ms. Leach is a 63 year old female astragal history of hypertension COPD and hyperlipidemia current smoker. Patient was originally seen on 01/09/2019 at [facility] ED for acute CVA of a left MCA territory. She had right-sided weakness as well as expressive aphasia CT angiogram did not show any evidence of aneurysm but did reveal occlusion of the cervical left internal carotid artery with reconstitution of flow within the left petrous segment. Echo/GERALDINE negative for PFO or thrombus, she was seen by neurology a as well as PT OT who recommended inpatient rehabilitation. Patient was placed on aspirin and statin and was doing well however on morning of 01/16/2019 patient did develop right-sided weakness and was unable to speak stat CT, MRI of head and brain did reveal left MCA vascular territory infarct involving the left temporal and parietal lobes increasing in size since previous exam. Small area of acute infarct in the anterior left frontal lobe appears progressed since the prior exam. As well as punctuate foci of acute infarct in the left frontal white matter which did not significantly change. Neurology was notified-review of telemetry overnight showed questionable atrial flutter-cardiology was consulted as well as vascular surgery. Vascular surgery not recommending any surgical intervention for occlusion of left internal carotid artery and recommending antiplatelet therapy as well as statin therapy. Cardiology did place a loop recorder. Patient has return back to her baseline and is able to speak slowly as well as move right upper extremities. Patient's expressed concern about patient using narcotics states that she will freely take medications whenever she has pain medicine regardless if they are within a time frame. Discussed the importance of permissive hypertension and that blood pressure should remain between 150- 180. Encouraged patient to keep head of bed elevated. She will follow-up with neurology cardiology as well as primary care provider. Currently she is hemodynamically stable at this time and she is ready for discharge. - Time Spent with Patient Total time spent providing and/or coordinating discharge services: - Discharge Medications Prescriptions: New Aspirin Enteric Coated [Aspirin EC] 81 mg PO DAILY tablet. Nicotine Patch [Nicoderm] 14 mg TD HS patch.td24 Continued Lisinopril [Zestril] 10 mg PO BID Gabapentin [Neurontin] 600 mg PO HS 2 Days #4 capsule Changed Gabapentin [Neurontin] 300 mg PO DAILY 2 Days #2 capsule Hydrocodone/Acetaminophen [[place] 5-325 Tablet] 1 each PO Q8H PRN 2 Days #6 tablet PRN Reason: Pain Home Medications: Lisinopril [Zestril] 10 mg PO BID 01/09/19 [History] Aspirin Enteric Coated [Aspirin EC] 81 mg PO DAILY tablet. 01/17/19 [Rx] Gabapentin [Neurontin] 300 mg PO DAILY 2 Days #2 capsule 01/17/19 [Rx] Gabapentin [Neurontin] 600 mg PO HS 2 Days #4 capsule 01/17/19 [Rx] Hydrocodone/Acetaminophen [[place] 5-325 Tablet] 1 each PO Q8H PRN 2 Days #6 tablet 01/17/19 [Rx] Nicotine Patch [Nicoderm] 14 mg TD HS patch.td24 01/17/19 [Rx] Allergies/Adverse Reactions: Allergy/AdvReac Type Severity Reaction Status Date / Time methotrexate Allergy Hives Verified 01/09/19 13:06 Sulfa (Sulfonamide Allergy Hives Verified 01/09/19 13:06 Antibiotics) Date of admission: 01/10/19 12:52 Primary care physician: Malu Limon Consults: 01/09/19 16:02 Consult to Neurology [CONS] Routine Consulting Provider: Neurology [facility] Reason for Consult: dysarthria, suspect cva Call Completed: No Consult to Occupational Therapy [CONS] Routine Comment: Evaluate, develop and implement POC Reason for Consult: suspect cvA Does patient have active BEDREST order?: No Is patient medically & hemodynamically stable?: Yes Patient assessed for mobility or mobilized this visit?: No Consult to Physical Therapy [CONS] Routine Comment: Evaluate, develop and implement POC Reason for Consult: suspect cva Does patient have active BEDREST order?: No Is patient medically & hemodynamically stable?: Yes Patient assessed for mobility or mobilized this visit?: No 01/09/19 16:43 Consult to Speech Therapy [CONS] Routine Comment: Evaluate, develop and implement POC Reason for Consult: aphasia Call Completed: Yes 01/10/19 09:32 Consult to Equipment Sales Specialist [CONS] Routine Reason for SW Consult: PT/OT RECOMMEND INPATIENT REHAB 01/16/19 07:58 Consult to Neurology [CONS] Routine Consulting Provider: [facility] Reason for Consult: CVA Time Notified: 07:58 Call Completed: Yes 01/16/19 09:10 Consult to Cardiology [CONS] Routine Comment: Consulting Provider: [facility] Reason for Consult: CVA- possible aflutter Time Notified: 09:11 Call Completed: Yes 01/16/19 14:06 Consult to Vascular Surgery [CONS] Routine Consulting Provider: Vascular [facility] Reason for Consult: Left ICA occlusion but with reconstitution of flow- recent CVA Time Notified: 14:07 Call Completed: Yes Discharging clinician: Ashley Christensen Anticipated date of discharge: 01/17/19 - Constitutional Vitals: Temp Pulse Resp BP Pulse Ox 97.8 F 77 18 108/75 96 01/17/19 06:45 01/17/19 14:01 01/17/19 06:45 01/17/19 14:01 01/17/19 06:45 Exam: Gen: Alert, awake, Oriented to time,place and person Chest: Diminished breath sounds B/L, No wheezing, No crackles, No rales Heart: S1S2+ RRR No murmurs Abd: Soft, NT, BS +, No organomegaly Ext: No edema, pulses are palpable, No calf tenderness Neuro : Dysarthria +, Motor weakness in Rt UE and LE. Reflexes diminished Skin: No rash. - Patient Status Disposition: Transfer SNF Condition: Fair Functional capacity at discharge: uses cane/walker Overall status at discharge: patient is back to baseline - Discharge Instructions Follow Up With: [facility] [Provider Group] (for LOOP recorder follow up) Malu Limon [Primary Care Provider] - 02/03/19 11:45 am Forms: Inpatient Work/School Release - Diet and Activity Activity: as per physical therapy Diet: low fat, low cholesterol - Stroke Is the patient on any antithrombotics?: Yes Are there any contradictions to antithrombotics?: No Contraindication Antithromb by Day Two: Medical contraindication Contraindication Not Initiating IV-Tpa: Medical contraindication Has Patient Been Evaluated by Rehab for Stroke: Yes - VTE Deep Vein Thrombosis/Pulmonary Embolism Present on Admission: Yes
--- NOTE | 2019-01-17 15:03 | Physician Discharge Referral ---
ExtendedCare Referral Info Transfer To: [facility] Provider in Charge: Ashley Christensen Provider in Charge after Transfer: PCP Institutional Level of Care: Skilled - Diagnosis (1) Aphasia Priority: Primary Status: Acute (2) HTN (hypertension) Priority: Secondary Status: Chronic (3) COPD (chronic obstructive pulmonary disease) Priority: Secondary Status: Chronic (4) Tobacco abuse Priority: Secondary Status: Chronic (5) Embolic stroke Priority: Primary Status: Acute Prognosis: Good Aware of Diagnosis: Patient Aware of Prognosis: Family - Transfer Medications Prescriptions: Gabapentin [Neurontin] 600 mg PO HS 2 Days #4 capsule Gabapentin [Neurontin] 300 mg PO DAILY 2 Days #2 capsule Hydrocodone/Acetaminophen [[place] 5-325 Tablet] 1 each PO Q8H PRN 2 Days #6 tablet PRN Reason: Pain Home Medications: Lisinopril [Zestril] 10 mg PO BID 01/09/19 [History] Aspirin Enteric Coated [Aspirin EC] 81 mg PO DAILY tablet. 01/17/19 [Rx] Gabapentin [Neurontin] 300 mg PO DAILY 2 Days #2 capsule 01/17/19 [Rx] Gabapentin [Neurontin] 600 mg PO HS 2 Days #4 capsule 01/17/19 [Rx] Hydrocodone/Acetaminophen [[place] 5-325 Tablet] 1 each PO Q8H PRN 2 Days #6 tablet 01/17/19 [Rx] Nicotine Patch [Nicoderm] 14 mg TD HS patch.td24 01/17/19 [Rx] Allergies/Adverse Reactions: Allergy/AdvReac Type Severity Reaction Status Date / Time methotrexate Allergy Hives Verified 01/09/19 13:06 Sulfa (Sulfonamide Allergy Hives Verified 01/09/19 13:06 Antibiotics) - Respiratory Orders Smoking Cessation: Smoking cessation has been advised. For more information, call the [place] Tobacco Quit Line at 7-286-UJOG-NOW. - Advance Directives Living Will: No Power of Photostatic Copy Maker for Health Care: No Code Status: Full Code - Mobility Orders Ambulate - Rehabiliation Orders Rehab Potential: Good Rehab Orders: Evaluation for Physical Therapy, Evaluation for Occupational Therapy, Evaluation for Speech Therapy Other: Maintain head of bed at 30 degree angle Maintain systolic blood pressure 150-180 - Diet Orders Regular CERTIFICATION: I certify that the transfer of the above named patient to an Extended Care Facility is necessary for the continuing treatment of the diagnosis listed. The above information is true and accurate reflection of patient's current condition. Confidential - Redisclosure prohibited without a patient's written consent.
== END 2019-01-17 15:44 | DRG 66 ==
LOC: EMEROOARM 12:48 → 3BNU 12:48 → SUATTDRO 14:25 → 3BNU 15:46
PROVIDERS: ADMIT Internal Medicine Nephrology; ATTEND Family Medicine

== ENCOUNTER 2019-03-26 12:44 | Observation (INO) ==
[2019-03-26] MEDS ORDERED: Gadolinium Contrast Agent (WT Based) IV PRN (13:01)
[2019-03-26 13:21] LABS: Basophils % 0.5 %; Eosinophils # 0.1 K/mcL (0.0-0.6); Eosinophils % 1.9 %; Hematocrit 38.9 % (35.3-44.9); Hemoglobin 13.7 g/dL (11.5-15.4); Immature Granulocytes % 0.9 % (0-4); Lymphocytes # 1.6 K/mcL (0.6-4.6); Mean Corpuscular HGB Conc 35.2 g/dL (31.6-35.5); Mean Corpuscular Volume 90.9 fL (83.0-100.0); Mean Platelet Volume 9.1 fL (9.4-12.4); Monocytes # 0.4 K/mcL (0.0-1.3); Monocytes % 5.9 %; Neutrophils # 5.2 K/mcL (1.6-8.9); Platelet Count 377 K/mcL (140-400); Red Blood Count 4.28 M/mcL (3.82-4.97); Red Cell Distribution Width 12.1 % (11.5-14.5); Segmented Neutrophils % 69.8 %; White Blood Count 7.5 K/mcL (4.3-11.1)
[2019-03-26 13:48] LABS: BUN/Creatinine Ratio 17 (6-26); Blood Urea Nitrogen 12 mg/dL (8-23); Calcium 9.7 mg/dL (8.6-10.3); Carbon Dioxide 27 mEq/L (23-29); Chloride 100 mEq/L (98-107); Glucose 221 mg/dL (70-105); Osmolality,Calculated 291 (280-300); Potassium 4.7 mEq/L (3.5-5.1); Sodium 137 mEq/L (136-145); eGFR For African Americans > 60 (> 60); eGFR For Non-African Americans > 60 (> 60)
[2019-03-26 14:18] LABS: Bilirubin,Urine Negative (Negative); Blood,Urine Negative (Negative); Color,Urine Yellow (Yellow); Glucose,Urine (UA) >=1000 mg/dL (Normal); Ketones,Urine Negative (Negative); Leukocyte Esterase,Urine Trace (Negative); Nitrite,Urine Negative (Negative); Protein,Urine Negative (Neg-Trace); Specific Gravity,Urine > 1.030 (1.010-1.025); Urobilinogen,Urine Normal (Normal)
[2019-03-26 14:20] LABS: Bacteria,Urine None Seen per hpf (None-Few); Hyaline Casts,Urine Few per lpf (None-Few); Squamous Epithelial Cell,Urine Many per lpf (None-Few)
[2019-03-26 14:21] LABS: Clarity,Urine Slightly Hazy (Clear)
[2019-03-26 14:33] LABS: Mucus,Urine Few (Few)
[2019-03-26 14:34] LABS: Yeast,Urine Few per hpf (None Seen)
[2019-03-26] MEDS ORDERED: Ondansetron 4 MG/2 ML VIAL IVP PRN (17:46)
[2019-03-26] MEDS ORDERED: Naloxone 0.4 MG/ML INJ IVP PRN (17:46)
[2019-03-26] MEDS ORDERED: D5% in Water 1,000 ML IVC PRN (17:48)
[2019-03-26] MEDS ORDERED: *HR* Dextrose 50 % in Water (Syg) 50 ML SYRINGE IVP PRN (17:48)
[2019-03-26] MEDS ORDERED: Dextrose Gel 15 GM/37.5 ML TUBE PO PRN ×2 (17:48)
[2019-03-26] MEDS ORDERED: Ipratropium/Albuterol Neb 3 ML IH PRN (17:49)
[2019-03-26 18:40] LABS: Ethanol < 10 mg/dL (Less than 10)
[2019-03-26] MEDS: *HR* Heparin 5,000 UNIT/ML VIAL SQ SCH (21:03)
[2019-03-27 02:30] LABS: Basophils # 0.1 K/mcL (0.0-0.2); Basophils % 0.8 %; Eosinophils # 0.2 K/mcL (0.0-0.6); Eosinophils % 2.2 %; Hematocrit 35.7 % (35.3-44.9); Hemoglobin 12.6 g/dL (11.5-15.4); Immature Granulocytes % 0.8 % (0-4); Lymphocytes # 2.2 K/mcL (0.6-4.6); Lymphocytes % 28.3 %; Mean Corpuscular HGB Conc 35.3 g/dL (31.6-35.5); Mean Corpuscular Hemoglobin 31.6 pg (28.0-33.3); Mean Corpuscular Volume 89.5 fL (83.0-100.0); Mean Platelet Volume 8.9 fL (9.4-12.4); Monocytes # 0.5 K/mcL (0.0-1.3); Monocytes % 5.7 %; Neutrophils # 4.9 K/mcL (1.6-8.9); Platelet Count 339 K/mcL (140-400); Red Blood Count 3.99 M/mcL (3.82-4.97); Segmented Neutrophils % 62.2 %; White Blood Count 7.9 K/mcL (4.3-11.1)
[2019-03-27 02:50] LABS: BUN/Creatinine Ratio 21 (6-26); Blood Urea Nitrogen 14 mg/dL (8-23); Calcium 8.9 mg/dL (8.6-10.3); Carbon Dioxide 28 mEq/L (23-29); Chloride 102 mEq/L (98-107); Glucose 209 mg/dL (70-105); Magnesium 1.9 mg/dL (1.6-2.6); Osmolality,Calculated 293 (280-300); Phosphorous 4.4 mg/dL (2.7-4.5); Potassium 4.2 mEq/L (3.5-5.1); Sodium 138 mEq/L (136-145); eGFR For African Americans > 60 (> 60); eGFR For Non-African Americans > 60 (> 60)
[2019-03-27 03:14] LABS: Folate 5.1 ng/mL (3.0-16.0)
[2019-03-27] MEDS: *HR* Heparin 5,000 UNIT/ML VIAL SQ SCH ×3 (05:40→22:32)
[2019-03-27] MEDS: Insulin LISPRO 300 UNITS/3 ML VIAL SQ SCH ×3 (07:57→17:14)
[2019-03-27] MEDS ORDERED: Aspirin Enteric Coated 325 MG Tablet PO SCH (09:00)
[2019-03-27] MEDS: Insulin DETEMIR 100 UNIT/ML X5UNITS SQ SCH ×2 (10:00→19:55)
[2019-03-27] MEDS: cefTRIAXone 1,000 MG in Water for inj. (sterile) 10 ML IVP SCH ×2 (12:26→12:52)
[2019-03-27] MEDS ORDERED: levoFLOXacin 750 MG TABLET PO SCH (15:00)
[2019-03-27] MEDS: *HR* HYDROcodone/Acet 5/325 mg TABLET PO PRN (20:02)
[2019-03-28 00:05] LABS: Bilirubin,Urine Negative (Negative); Blood,Urine Negative (Negative); Clarity,Urine Clear (Clear); Color,Urine Yellow (Yellow); Glucose,Urine (UA) Normal (Normal); Ketones,Urine Negative (Negative); Leukocyte Esterase,Urine Negative (Negative); Nitrite,Urine Negative (Negative); PH,Urine 5.5 pH Units (5.0-8.0); Protein,Urine Negative (Neg-Trace); Specific Gravity,Urine 1.023 (1.010-1.025); Urobilinogen,Urine Normal (Normal)
[2019-03-28 04:11] LABS: Hematocrit 37.7 % (35.3-44.9); Hemoglobin 12.7 g/dL (11.5-15.4); Mean Corpuscular HGB Conc 33.7 g/dL (31.6-35.5); Mean Corpuscular Hemoglobin 31.1 pg (28.0-33.3); Mean Corpuscular Volume 92.4 fL (83.0-100.0); Platelet Count 326 K/mcL (140-400); Red Blood Count 4.08 M/mcL (3.82-4.97); Red Cell Distribution Width 11.9 % (11.5-14.5); White Blood Count 7.4 K/mcL (4.3-11.1)
[2019-03-28 04:33] LABS: BUN/Creatinine Ratio 22 (6-26); Blood Urea Nitrogen 15 mg/dL (8-23); Calcium 8.7 mg/dL (8.6-10.3); Carbon Dioxide 23 mEq/L (23-29); Chloride 104 mEq/L (98-107); Glucose 168 mg/dL (70-105); Osmolality,Calculated 289 (280-300); Potassium 4.2 mEq/L (3.5-5.1); Sodium 137 mEq/L (136-145); eGFR For African Americans > 60 (> 60); eGFR For Non-African Americans > 60 (> 60)
[2019-03-28] MEDS: *HR* Heparin 5,000 UNIT/ML VIAL SQ SCH (05:59)
[2019-03-28] MEDS: *HR* HYDROcodone/Acet 5/325 mg TABLET PO PRN (07:37)
[2019-03-28] MEDS: Insulin DETEMIR 100 UNIT/ML X5UNITS SQ SCH (07:38)
[2019-03-28] MEDS: Insulin LISPRO 300 UNITS/3 ML VIAL SQ SCH ×2 (07:43→12:37)
[2019-03-28 07:45] VITALS: BP 130/83
[2019-03-28] MEDS ORDERED: FLU Vac QV 19-20 (6Month+)/PF 0.5 ML SYRINGE IM ONE (11:19)
== END 2019-03-28 13:12 | disposition home or self-care (01) ==
LOC: EMEROOARM 12:44 → 2NENU 12:44 → SUATTDRO 17:43 → 2NENU 18:33
PROVIDERS: ADMIT Student in an Organized Health Care Education/Training Program; ATTEND Internal Medicine